=== PATIENT | male | born 1995 | race Caucasian/White ===

== ENCOUNTER 2024-07-20 11:12 | Emergency (ER) | payer BC ==
[~2024-07-20] VITALS: Ht 187.9 cm; Wt 149.7 kg
[2024-07-20] MEDS ORDERED: Ondansetron Hydrochloride 4 MG/2 ML VIAL IV ONE (11:35)
[2024-07-20] MEDS ORDERED: SODIUM CHLORIDE 0.9% 1,000 ML IV ONE (11:35)
[2024-07-20 12:05] LABS: BASO # 0.1 10*3/uL (0.0-0.1); BASO % 0.5 % (0.0-1.0); EOS # 0.6 10*3/uL (0.0-0.4); EOS % 3.4 % (1.0-4.0); MEAN CELL VOLUME 86.8 fl (80.0-94.0); MEAN CORPUSCULAR HGB CONC 31.1 g/dl (33.0-37.0); MEAN PLATELET VOLUME 10.1 fl (9.6-12.3); MONO % 5.5 % (3.0-9.0); NEUT # 15.7 10*3/uL (2.3-7.9); NEUT % 83.5 % (47.0-73.0); PLATELET COUNT AUTOMATED 346 10*3/uL (130-400); RED CELL DISTRI WIDTH 13.2 % (0-14.5); WHITE BLOOD COUNT 18.8 10*3/uL (4.8-10.8)
[2024-07-20 12:18] LABS: BILIRUBIN Negative (Negative); BLOOD Negative (Negative); CLARITY Clear (Clear); COLOR Yellow (Yellow); GLUCOSE Negative (Negative); KETONE Negative (Negative); LEUKO ESTERASE Negative (Negative); NITRITE Negative (Negative); PH 5.5 (4.5-8.0); UROBILINOGEN 0.2 E.U./dl (0.0-1.0)
[2024-07-20 12:26] LABS: BACTERIA TRACE; EPITHELIAL CELLS 0-2; MUCOUS 1+; RBC 0-2 rbc/hpf (0-2); WBC 0-2 wbc/hpf (0-5)
[2024-07-20 12:28] LABS: ALKALINE PHOSPHATASE 87 U/L (46-116); BUN 11 mg/dl (9-23); CHLORIDE 103 mmol/L (98-107); LIPASE 32 U/L (12-53); POTASSIUM 4.7 mmol/L (3.4-5.1); SGPT/ALT 39 U/L (5-49); TOTAL PROTEIN 8.7 gm/dL (6.0-8.0)
[2024-07-20] MEDS ORDERED: Ondansetron4 MG PO (13:32)
[2024-07-20] MEDS ORDERED: CIPRO500 MG PO (13:32)
[2024-07-20] MEDS ORDERED: Ciprofloxacin Hydrochloride 500 MG TAB PO ONE (13:35)
[2024-07-20] MEDS ORDERED: BENZONATATE100 M1 PO (13:44)
== END 2024-07-20 14:00 | disposition home or self-care (01) ==
LOC: ED 11:12
PROVIDERS: Nurse Practitioner Family
DX: B34.9 Viral infection, unspecified (principal); Z20.822 Contact with and (suspected) exposure to COVID-19; K52.9 Noninfective gastroenteritis and colitis, unspecified; Z88.0 Allergy status to penicillin; Z91.018 Allergy to other foods; Z91.010 Allergy to peanuts

== ENCOUNTER 2024-09-27 09:14 | Emergency (ER) | payer BC ==
[~2024-09-27] VITALS: Ht 187.9 cm; Wt 147.4 kg
[~2024-09-27 09:14] MED LIST: BENZONATATE100 M1 PO; CIPRO500 MG PO; Ondansetron4 MG PO
[2024-09-27] MEDS ORDERED: TAMIFLU 75MG CA75 MG PO (09:47)
== END 2024-09-27 09:54 | disposition home or self-care (01) ==
LOC: ED 09:14
DX: J10.1 Influenza due to other identified influenza virus with other respiratory manifestations (principal); Z20.822 Contact with and (suspected) exposure to COVID-19